=== PATIENT | female | born 1945 | race Caucasian/White ===

== ENCOUNTER → 2024-04-14 10:40 | Outpatient (REF) | payer OTHER, SELFPAY | LOC: RAD 10:40 | PROVIDERS: ATTENDING PHYSICIAN Surgery Vascular Surgery; FAMILY PHYSICIAN Physician Assistant Medical | DX: I70.1 Atherosclerosis of renal artery (principal) | CPT/HCPCS: 93975 ==

== ENCOUNTER → 2024-11-03 14:36 | Outpatient (REF) | payer OTHER, SELFPAY | LOC: DHVS 14:36 | PROVIDERS: ATTENDING PHYSICIAN Surgery Vascular Surgery; FAMILY PHYSICIAN Physician Assistant Medical | DX: I70.1 Atherosclerosis of renal artery (principal) | CPT/HCPCS: 93975 ==